=== PATIENT | female | born 1980 | race Caucasian/White ===

== ENCOUNTER 2018-08-30 16:57 | Emergency (ER) | payer OTHER ==
[~2018-08-30] VITALS: Ht 154.9 cm; Wt 67.1 kg
[2018-08-30 17:19] VITALS: BP 120/74
[2018-08-30] MEDS ORDERED: KETOROLAC 30 MG/ML VIAL IM ONE (17:40)
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
[2018-08-30 18:44] VITALS: BP 122/72
== END 2018-08-30 18:40 | disposition home or self-care (01) ==
LOC: MED 16:57
DX: R07.89 Other chest pain (principal); M79.621 Pain in right upper arm; Z88.6 Allergy status to analgesic agent; Z90.49 Acquired absence of other specified parts of digestive tract
CPT/HCPCS: 71045; 76881; 81025; 96372; 99284; J1885; Q0092; 81002

== ENCOUNTER 2018-11-20 11:37 | Emergency (ER) | payer SELFPAY ==
[~2018-11-20] VITALS: Ht 154.9 cm; Wt 68.0 kg
[2018-11-20 12:04] VITALS: BP 122/90
--- NOTE | 2018-11-20 12:35 | NUR ---
PT BIB SELF WITH c/o umbilical region pain radiating upper back x 3 days. pain 7/10 at this time. no meds taken at home.pain worsens with any po intake;denies any nausea or vomiting at this time. last bm this am with mild straining. er md to see the pt. urine collected. will continue to monitor pt. hx--denies rx---none
[2018-11-20 12:42] VITALS: BP 122/90
--- NOTE | 2018-11-20 12:42 | NUR ---
Patient discharged with v/s stable. Written and verbal after care instructions given and explained. Patient alert, oriented and verbalized understanding of instructions. Ambulatory with steady gait. All questions addressed prior to discharge. ID band removed. Patient advised to follow up with PMD. Rx of PYRIDIUM, MACROBID given. Patient educated on indication of medication including possible reaction and side effects. Opportunity to ask questions provided and answered.
== END 2018-11-20 12:42 | disposition home or self-care (01) ==
LOC: MED 11:37
DX: N39.0 Urinary tract infection, site not specified (principal); F17.210 Nicotine dependence, cigarettes, uncomplicated; Z90.49 Acquired absence of other specified parts of digestive tract; Z88.6 Allergy status to analgesic agent
CPT/HCPCS: 81002; 99283

== ENCOUNTER 2019-01-10 16:59 | Emergency (ER) | payer SELFPAY ==
[~2019-01-10] VITALS: Ht 152.4 cm; Wt 70.3 kg
[2019-01-10 17:11] VITALS: BP 139/75
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
--- NOTE | 2019-01-10 17:31 | NUR ---
DR MCGOVERN EVALUATING AAO X4 PT W/ AND DAUGHTER AT BEDSIDE
[2019-01-10 17:40] VITALS: BP 139/75
--- NOTE | 2019-01-10 17:40 | NUR ---
Patient discharged by Dr Gonzales with v/s stable. Written and verbal after care instructions given and explained. Patient alert, oriented and verbalized understanding of instructions. Ambulatory with steady gait. All questions addressed prior to discharge. ID band removed. Patient advised to follow up with PMD. Rx of Sulfacetamide given. Patient educated on indication of medication including possible reaction and side effects. Opportunity to ask questions provided and answered.
== END 2019-01-10 17:40 | disposition home or self-care (01) ==
LOC: MED 16:59
DX: H10.9 Unspecified conjunctivitis (principal); Z98.51 Tubal ligation status; Z88.6 Allergy status to analgesic agent
CPT/HCPCS: 81002; 81025; 99283

== ENCOUNTER 2020-04-12 08:52 | Emergency (ER) | payer OTHER ==
[~2020-04-12] VITALS: Ht 154.9 cm; Wt 69.9 kg
[2020-04-12 09:07] VITALS: BP 133/83
--- NOTE | 2020-04-12 09:33 | NUR ---
39 Y/O FEMALE C/O SORE THROAT AND SOB SINCE THURSDAY. NO RESP DISTRESS NOTED AT THIS TIME. VSS. LUNG SOUNDS CLEAR. DENIES ANY COUGH. DENIES ANY COVID CONTACTS. NO PMH
--- NOTE | 2020-04-12 09:44 | NUR ---
PT ALAINAID SWABBED AND WALKED TO LAB
[2020-04-12 10:06] VITALS: BP 133/83
--- NOTE | 2020-04-12 10:06 | NUR ---
Patient discharged with v/s stable. Written and verbal after care instructions given and explained. Patient verbalized understanding. Ambulatory with steady gait. All questions addressed prior to discharge. Advised to follow up with PMD.
== END 2020-04-12 10:06 | disposition home or self-care (01) ==
LOC: MED 08:52
DX: R05 Cough (principal); J02.9 Acute pharyngitis, unspecified; Z20.828 Contact with and (suspected) exposure to other viral communicable diseases
CPT/HCPCS: 99283; U0003

== ENCOUNTER 2021-08-15 16:30 | Emergency (ER) | payer OTHER ==
[~2021-08-15] VITALS: Ht 154.9 cm; Wt 73.9 kg
[2021-08-15 16:41] VITALS: BP 112/79
--- NOTE | 2021-08-15 17:25 | NUR ---
PT AMBULATED TO ER BED 3
--- NOTE | 2021-08-15 17:45 | NUR ---
40 y/o F BIB self from home c/o upper left deltoid and low back pain x 1 month. Patient A&Ox4, ambulatory, states unable to see PCP for Xrays d/t being sick. States 8/10, throbbing/constant, radiating from low right back to right hip. Patietn reports upper left deltoid pain similar in rating; 8/10, sharp/constant. Patient denies medications prior to arrival; states on day 7/10 of Amoxicillin for URI. Denies fever, chills, nausea, vomiting, diarrhea, chest pain, abdominal pain, dysuria, urinary symptoms. Bed locked in lowest position, side rails x 1. Pt also reports bloody stool x 2 weeks; states diagnosed with hemorrhoids and reports bright red blood. Last BM: today, normal. PMH/Meds: hemorrhoids - Amoxicillin Allergies: ibuprofen
--- NOTE | 2021-08-15 17:45 | NUR ---
Note undone in EDM - 08/15/21 at 1808 by MEDCHANEL 40 y/o F BIB self from home c/o upper left deltoid and low back pain x 1 month. Patient A&Ox4, ambulatory, states unable to see PCP for Xrays d/t being sick. States 810, throbbing/constant, radiating from low right back to right hip. Patietn reports upper left deltoid pain similar in rating; 8/10, sharp/constant. Patient denies medications prior to arrival; states on day 7 of Amoxicillin for URI. Denies fever, chills, nausea, vomiting, diarrhea, chest pain, abdominal pain, dysuria, urinary symptoms. Bed locked in lowest position, side rails x 1. PMH/Meds: Amoxicillin Allergies: ibuprofen
--- NOTE | 2021-08-15 18:53 | NUR ---
Lab at bedside
--- NOTE | 2021-08-15 18:53 | NUR ---
US tech at bedside
--- NOTE | 2021-08-15 18:53 | NUR ---
LORNA handed to CPT Anny at ER bedside
[2021-08-15 19:04] LABS: BASOPHILS % (AUTO) 0.5 % (0.0-2.0); EOSINOPHILS # (AUTO) 0.2 K/uL (0-0.4); EOSINOPHILS % (AUTO) 1.9 % (0.0-4.0); HEMOGLOBIN 12.4 g/dL (12.0-16.0); LYMPHOCYTES # (AUTO) 2.3 K/uL (2.5-16.5); LYMPHOCYTES % (AUTO) 27.1 % (20.5-51.1); MEAN CORPUSCULAR HEMOGLOBIN 30 pg (27-31); MEAN CORPUSCULAR HGB CONC 34 g/dL (33-37); MEAN CORPUSCULAR VOLUME 90.3 fL (80-94); MONOCYTES # (AUTO) 0.5 K/uL (0.8-1.0); MONOCYTES % (AUTO) 5.8 % (1.7-9.3); NEUTROPHILS # (AUTO) 5.5 K/uL (1.8-7.7); NEUTROPHILS % (AUTO) 64.7 % (42.2-75.2); PLATELET COUNT (AUTO) 241 K/uL (140-450); RED BLOOD CELL COUNT(AUTO) 4.09 MIL/uL (4.20-5.40); RED CELL DISTRIBUTION WIDTH 13.2 % (11.6-13.7); WHITE BLOOD COUNT (AUTO) 8.5 K/uL (4.8-10.8)
--- NOTE | 2021-08-15 19:09 | NUR ---
Report and transfer of care endorsed to TERRA Jha.
--- NOTE | 2021-08-15 19:12 | NUR ---
Rectal exam performed per Dr. Oliver with TERRA Jha at bedside during procedure. Patient tolerated well.
--- NOTE | 2021-08-15 19:13 | NUR ---
Female Supervisor [employer] [facility] accompanied female patient for Rectal Exam.
--- NOTE | 2021-08-15 19:13 | NUR ---
Dr. Oliver at bedside for rectal exam.
[2021-08-15 19:23] LABS: ALBUMIN 3.3 g/dL (3.4-5.0); ANION GAP 10.9 (8-16); CARBON DIOXIDE 24.8 mmol/L (21-32); CREATININE 0.6 mg/dL (0.6-1.3); POTASSIUM 3.7 mmol/L (3.5-5.1); TOTAL BILIRUBIN 0.3 mg/dL (0.0-1.0)
[2021-08-15 19:26] LABS: BILIRUBIN,URINE NEGATIVE (NEGATIVE); BLOOD, URINE NEGATIVE (NEGATIVE); COLOR,URINE YELLOW (YELLOW); LEUKOCYTE ESTERASE ,URINE NEGATIVE (NEGATIVE); NITRITE, URINE NEGATIVE (NEGATIVE); PH,URINE 6.5 (5.0-9.0); UGLUCOSE NEGATIVE (NEGATIVE)
[2021-08-15 19:34] LABS: APPEARANCE,URINE CLEAR (CLEAR)
[2021-08-15] MEDS ORDERED: methocarbamoL 500 MG TAB PO STA (20:02)
[2021-08-15] MEDS ORDERED: ACET-2619 PO (20:04)
[2021-08-15] MEDS ORDERED: LID5T TP (20:04)
[2021-08-15] MEDS ORDERED: METH-1681 PO (20:04)
[2021-08-15] MEDS ORDERED: LIDOCAINE 5% 1 EA PATCH TP SCH (20:05)
[2021-08-15] MEDS ORDERED: ACETAMINOPHEN EXTRA STRENGTH 500 MG TAB PO ONE (20:05)
[2021-08-15 20:56] VITALS: BP 112/79
--- NOTE | 2021-08-15 20:56 | NUR ---
Patient discharged with v/s stable. Written and verbal after care instructions given and explained. Patient alert, oriented and verbalized understanding of instructions. Ambulatory with steady gait. All questions addressed prior to discharge. ID band removed. Patient advised to follow up with PMD. Rx of Tylenol, Lidocaine and Roboxin given. Patient educated on indication of medication including possible reaction and side effects. Opportunity to ask questions provided and answered.
== END 2021-08-15 20:56 | disposition home or self-care (01) ==
LOC: MED 16:30
DX: M62.838 Other muscle spasm (principal); R10.9 Unspecified abdominal pain; Z90.49 Acquired absence of other specified parts of digestive tract; Z79.899 Other long term (current) drug therapy; Z88.6 Allergy status to analgesic agent
CPT/HCPCS: 36415; 76770; 80053; 81003; 83690; 85025; 99284; Q0092

== ENCOUNTER 2021-09-17 16:41 | Emergency (ER) | payer OTHER ==
[~2021-09-17] VITALS: Ht 154.9 cm; Wt 75.7 kg
[~2021-09-17 16:41] MED LIST: ACET-2619 PO; LID5T TP; METH-1681 PO
[2021-09-17 17:04] VITALS: BP 108/84
[2021-09-17] MEDS ORDERED: BACITRACIN OINT 500 UNITS/GM PKT TP ONE (18:15)
[2021-09-17] MEDS ORDERED: IBUPROFEN 600 MG TAB PO ONE (18:15)
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
--- NOTE | 2021-09-17 20:00 | NUR ---
MD MURPHY AT BEDSIDE
--- NOTE | 2021-09-17 20:15 | NUR ---
PATIENT STATE PAIN 4/10 AND TOLERABLE. NO MEDICATION NEEDED AT THIS TIME.
--- NOTE | 2021-09-17 20:15 | NUR ---
PATIENT VSS, SITTING IN BED. BED LOW AND LOCKED. ALL NEEDS MET.
[2021-09-17] MEDS ORDERED: BACI1PAC6 TP (20:26)
[2021-09-17] MEDS ORDERED: IBUP-2213 PO (20:26)
[2021-09-17] MEDS ORDERED: CEPH-588 PO (20:26)
--- NOTE | 2021-09-17 20:40 | NUR ---
SLING PLACED ON PATIENT AND EDUCATED ON HOW TO APPLY. TOLERATED WELL
[2021-09-17 20:45] VITALS: BP 135/84
--- NOTE | 2021-09-17 20:45 | NUR ---
Patient discharged with v/s stable. Written and verbal after care instructions given on Laceration and explained. Patient alert, oriented and verbalized understanding of instructions. Ambulatory with steady gait. All questions addressed prior to discharge. ID band removed. Patient advised to follow up with PMD. Rx of Bacitracin Zinc and Cephalexin given.
--- NOTE | 2021-09-17 21:37 | NUR ---
The patient's care was reviewed and supervised by Paris Garcia RN.
== END 2021-09-17 20:45 | disposition home or self-care (01) ==
LOC: MED 16:41
DX: S51.011A Laceration without foreign body of right elbow, initial encounter (principal); S60.416A Abrasion of right little finger, initial encounter; R03.0 Elevated blood-pressure reading, without diagnosis of hypertension; Z79.1 Long term (current) use of non-steroidal anti-inflammatories (NSAID); Z79.2 Long term (current) use of antibiotics; Z79.899 Other long term (current) drug therapy; X58.XXXA Exposure to other specified factors, initial encounter; Y93.89 Activity, other specified; Y92.89 Other specified places as the place of occurrence of the external cause; Y99.8 Other external cause status
CPT/HCPCS: 29105; 73080; 73130; 90471; 90715; 99284

== ENCOUNTER 2021-09-21 08:29 | Emergency (ER) | payer OTHER ==
[~2021-09-21] VITALS: Ht 154.9 cm; Wt 75.7 kg
[~2021-09-21 08:29] MED LIST changes: +BACI1PAC6 TP; +CEPH-588 PO; +IBUP-2213 PO
[2021-09-21 08:35] VITALS: BP 156/83
[2021-09-21] MEDS ORDERED: LIDOCAINE 5% 1 EA PATCH TP SCH (09:10)
[2021-09-21] MEDS ORDERED: ACETAMINOPHEN EXTRA STRENGTH 500 MG TAB PO ONE (09:10)
[2021-09-21] MEDS ORDERED: IBUP-2213 PO (10:36)
[2021-09-21] MEDS ORDERED: LID5T TP (10:36)
[2021-09-21 11:10] VITALS: BP 126/86
== END 2021-09-21 11:18 | disposition home or self-care (01) ==
LOC: MED 08:29
DX: S29.012A Strain of muscle and tendon of back wall of thorax, initial encounter (principal); I10 Essential (primary) hypertension; V87.8XXA Person injured in other specified noncollision transport accidents involving motor vehicle (traffic), initial encounter; Y93.55 Activity, bike riding; Y92.89 Other specified places as the place of occurrence of the external cause; Y99.8 Other external cause status
CPT/HCPCS: 71101; 99283

== ENCOUNTER 2022-06-01 10:41 | Emergency (ER) | payer OTHER ==
[~2022-06-01] VITALS: Ht 154.9 cm; Wt 78.0 kg
[~2022-06-01 10:41] MED LIST changes: +BACI-416 TP; -BACI1PAC6 TP
[2022-06-01 10:53] VITALS: BP 127/76
--- NOTE | 2022-06-01 10:56 | NUR ---
PT AMBULATED TO ER BED 3
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
[2022-06-01] MEDS ORDERED: TRAM-748 PO (11:32)
--- NOTE | 2022-06-01 11:41 | NUR ---
Patient discharged with v/s stable. Written and verbal after care instructions ABOUT CONCUSSION, SUTURE REMOVAL given and explained. Patient alert, oriented and verbalized understanding of instructions. Ambulatory with steady gait. All questions addressed prior to discharge. ID band removed. Patient advised to follow up with PMD. Rx of TRAMADOL HCL given. Patient educated on indication of medication including possible reaction and side effects. Opportunity to ask questions provided and answered.
== END 2022-06-01 11:41 | disposition home or self-care (01) ==
LOC: MED 10:41
DX: S01.01XD Laceration without foreign body of scalp, subsequent encounter (principal); Z79.899 Other long term (current) drug therapy; X58.XXXD Exposure to other specified factors, subsequent encounter
CPT/HCPCS: 99283

== ENCOUNTER 2022-06-21 06:22 | Emergency (ER) | payer OTHER ==
[~2022-06-21] VITALS: Ht 154.9 cm; Wt 76.7 kg
[~2022-06-21 06:22] MED LIST changes: +TRAM-748 PO
[2022-06-21 06:23] VITALS: BP 144/72
--- NOTE | 2022-06-21 06:49 | NUR ---
pt is here cause of pain the stomact 01/11 with burning sensation and radiating to the back. tehre is vomiting invovles.
[2022-06-21] MEDS ORDERED: DICYCLOMINE HCL LIQUID 20 MG, ALUMINUM HYD/MAG/SIMETHICONE 30 ML, LIDOCAINE VISCOUS 2% ... PO ONE ×3 (06:55)
[2022-06-21] MEDS ORDERED: ONDANSETRON 4 MG ODT PO ONE (06:55)
[2022-06-21] MEDS ORDERED: KETOROLAC 30 MG/ML VIAL IM ONE (06:55)
[2022-06-21] MEDS ORDERED: DICYCLOMINE HCL LIQUID 10 MG/5 ML UDC ONE (07:03)
[2022-06-21] MEDS ORDERED: ALUMINUM HYD/MAG/SIMETHICONE 30 ML UDC ONE (07:03)
[2022-06-21 08:38] LABS: BASOPHILS % (AUTO) 0.2 % (0.0-2.0); EOSINOPHILS # (AUTO) 0.2 K/uL (0-0.4); EOSINOPHILS % (AUTO) 1.2 % (0.0-4.0); HEMOGLOBIN 12.6 g/dL (12.0-16.0); LYMPHOCYTES # (AUTO) 1.4 K/uL (2.5-16.5); MEAN CORPUSCULAR HEMOGLOBIN 30 pg (27-31); MEAN CORPUSCULAR HGB CONC 33 g/dL (33-37); MEAN CORPUSCULAR VOLUME 88.7 fL (80-94); MONOCYTES # (AUTO) 0.7 K/uL (0.8-1.0); MONOCYTES % (AUTO) 5.3 % (1.7-9.3); NEUTROPHILS # (AUTO) 10.6 K/uL (1.8-7.7); NEUTROPHILS % (AUTO) 82.3 % (42.2-75.2); PLATELET COUNT (AUTO) 233 K/uL (140-450); RED BLOOD CELL COUNT(AUTO) 4.29 MIL/uL (4.20-5.40); RED CELL DISTRIBUTION WIDTH 12.9 % (11.6-13.7); WHITE BLOOD COUNT (AUTO) 12.9 K/uL (4.8-10.8)
[2022-06-21 09:01] LABS: ALBUMIN 3.5 g/dL (3.4-5.0); ANION GAP 11.6 (8-16); CARBON DIOXIDE 26.4 mmol/L (21-32); CREATININE 0.7 mg/dL (0.6-1.3); TOTAL BILIRUBIN 0.3 mg/dL (0.0-1.0)
--- NOTE | 2022-06-21 09:33 | NUR ---
Pt bibs for upper abd pain that started early in the morning. Pt states she has a hx of gastritis and ate pizza last night with family, which usually irritates her stomach. Pt is a/o x 4, vss, no ss of acute distress, breathing equal and unlabored, speech clear, pt gave ua sample (labeled and walked to lab). Pt resting in bed on monitor..
[2022-06-21 09:42] LABS: APPEARANCE,URINE CLEAR (CLEAR); BILIRUBIN,URINE NEGATIVE (NEGATIVE); BLOOD, URINE NEGATIVE (NEGATIVE); COLOR,URINE YELLOW (YELLOW); LEUKOCYTE ESTERASE ,URINE NEGATIVE (NEGATIVE); NITRITE, URINE NEGATIVE (NEGATIVE); UGLUCOSE NEGATIVE (NEGATIVE)
[2022-06-21] MEDS ORDERED: MAG355OR2 PO (10:13)
[2022-06-21] MEDS ORDERED: ONDA-188 PO (10:13)
[2022-06-21] MEDS ORDERED: FAMO-90 PO (10:13)
[2022-06-21 10:33] VITALS: BP 132/85
== END 2022-06-21 10:30 | disposition home or self-care (01) ==
LOC: MED 06:22
DX: K29.70 Gastritis, unspecified, without bleeding (principal)
CPT/HCPCS: 36415; 80053; 81003; 81025; 83690; 85025; 96372; 99283; J1885; Q0162

== ENCOUNTER 2023-03-12 21:00 | Emergency (ER) | payer OTHER ==
[~2023-03-12] VITALS: Ht 154.9 cm; Wt 67.1 kg
[~2023-03-12 21:00] MED LIST changes: -BACI-416 TP; +BACI-418 TP; +FAMO-90 PO; +MAG355OR2 PO; +ONDA-188 PO
[2023-03-12 21:30] VITALS: BP 150/87; PULSE 86; RESP 18; TEMP 98.5; O2SAT 100
[2023-03-13] MEDS ORDERED: DICYCLOMINE HCL LIQUID 20 MG, ALUMINUM HYD/MAG/SIMETHICONE 30 ML, LIDOCAINE VISCOUS 2% ... PO ONE ×3 (01:30)
[2023-03-13] MEDS ORDERED: ALUMINUM HYD/MAG/SIMETHICONE 30 ML UDC ONE (01:38)
[2023-03-13] MEDS ORDERED: DICYCLOMINE HCL LIQUID 10 MG/5 ML UDC ONE (01:38)
[2023-03-13 01:44] LABS: APPEARANCE,URINE CLEAR (CLEAR); BILIRUBIN,URINE NEGATIVE (NEGATIVE); BLOOD, URINE NEGATIVE (NEGATIVE); COLOR,URINE YELLOW (YELLOW); LEUKOCYTE ESTERASE ,URINE NEGATIVE (NEGATIVE); NITRITE, URINE NEGATIVE (NEGATIVE); PROTEIN,URINE TRACE (NEGATIVE); UGLUCOSE NEGATIVE (NEGATIVE); UROBILINOGEN,URINE 0.2 EU/dL (0.2 - 1)
[2023-03-13 01:47] LABS: BASOPHILS % (AUTO) 0.2 % (0.0-2.0); EOSINOPHILS # (AUTO) 0.1 K/uL (0-0.4); EOSINOPHILS % (AUTO) 1.4 % (0.0-4.0); HEMATOCRIT 35.2 % (36-48); HEMOGLOBIN 11.5 g/dL (12.0-16.0); LYMPHOCYTES # (AUTO) 1.1 K/uL (2.5-16.5); LYMPHOCYTES % (AUTO) 11.7 % (20.5-51.1); MEAN CORPUSCULAR HEMOGLOBIN 29 pg (27-31); MEAN CORPUSCULAR HGB CONC 33 g/dL (33-37); MEAN CORPUSCULAR VOLUME 87.2 fL (80-94); MONOCYTES # (AUTO) 0.6 K/uL (0.8-1.0); MONOCYTES % (AUTO) 6.7 % (1.7-9.3); NEUTROPHILS # (AUTO) 7.7 K/uL (1.8-7.7); PLATELET COUNT (AUTO) 239 K/uL (140-450); RED BLOOD CELL COUNT(AUTO) 4.04 MIL/uL (4.20-5.40); RED CELL DISTRIBUTION WIDTH 16.3 % (11.6-13.7); WHITE BLOOD COUNT (AUTO) 9.6 K/uL (4.8-10.8)
[2023-03-13 02:01] LABS: ALBUMIN 3.2 g/dL (3.4-5.0); ANION GAP 11.2 (8-16); CALCIUM 8.1 mg/dL (8.5-10.1); CARBON DIOXIDE 26.3 mmol/L (21-32); CREATININE 0.5 mg/dL (0.6-1.3); POTASSIUM 3.5 mmol/L (3.5-5.1); TOTAL BILIRUBIN 0.6 mg/dL (0.0-1.0); TOTAL PROTEIN, SERUM 6.8 g/dL (6.4-8.2)
[2023-03-13] MEDS ORDERED: ONDANSETRON 4 MG ODT PO ONE (03:40)
[2023-03-13] MEDS ORDERED: KETOROLAC 30 MG/ML VIAL IM ONE (04:35)
[2023-03-13] MEDS ORDERED: OMEP20EC11 PO (06:18)
[2023-03-13] MEDS ORDERED: ACET-10509 PO (06:18)
[2023-03-13 06:30] VITALS: BP 110/84; PULSE 88; RESP 18; TEMP 98.5; O2SAT 100
== END 2023-03-13 06:30 | disposition home or self-care (01) ==
LOC: MED 21:00
DX: R10.13 Epigastric pain (principal); M13.88 Other specified arthritis, other site; Z79.899 Other long term (current) drug therapy; Z90.49 Acquired absence of other specified parts of digestive tract
CPT/HCPCS: 36415; 74176; 80053; 81003; 81025; 83690; 85025; 96372; 99285; J1885; Q0162

== ENCOUNTER 2023-03-26 04:40 | Emergency (ER) | payer OTHER ==
[~2023-03-26] VITALS: Ht 165.1 cm; Wt 74.4 kg
[~2023-03-26 04:40] MED LIST changes: +ACET-10509 PO; +OMEP20EC11 PO
[2023-03-26 04:42] VITALS: BP 152/52; PULSE 107; RESP 24; TEMP 97.8; O2SAT 100
[2023-03-26] MEDS ORDERED: LORazepam 2 MG/ML VIAL IVP ONE (04:55)
[2023-03-26] MEDS ORDERED: NACL 0.9% 1,000 ML IV ONE (04:55)
[2023-03-26 04:59] VITALS: BP 141/88; PULSE 120; RESP 22; O2SAT 100
== END 2023-03-26 05:38 | disposition left against medical advice (07) ==
LOC: MED 04:40
DX: R06.4 Hyperventilation (principal); R00.2 Palpitations; F41.9 Anxiety disorder, unspecified; F15.90 Other stimulant use, unspecified, uncomplicated; Z72.89 Other problems related to lifestyle; Z79.899 Other long term (current) drug therapy
CPT/HCPCS: 99283

== ENCOUNTER 2023-05-22 03:32 | Emergency (ER) | payer OTHER ==
[~2023-05-22] VITALS: Ht 152.4 cm; Wt 65.8 kg
[2023-05-22 03:34] VITALS: BP 153/90; PULSE 130; RESP 24; TEMP 97.4; O2SAT 99
[2023-05-22 04:10] VITALS: BP 153/90; PULSE 130; RESP 24; TEMP 97.4; O2SAT 99
== END 2023-05-22 04:10 | disposition left against medical advice (07) ==
LOC: MED 03:32
DX: F12.90 Cannabis use, unspecified, uncomplicated (principal); Z79.899 Other long term (current) drug therapy
CPT/HCPCS: 99283